=== PATIENT | female | born 1985 | race African-American/Black ===

== ENCOUNTER 2023-08-10 22:02 | Emergency (ER) | payer BC, SELFPAY ==
[2023-08-10 22:10] VITALS: BP 152/93; PULSE 83; RESP 20; TEMP 36.3; O2SAT 100
--- NOTE | 2023-08-11 00:49 | PC.NURSE ---
no answer at triage
== END 2023-08-11 00:49 | disposition left against medical advice (07) ==
LOC: ANHED 08-11 01:01
PROVIDERS: PCP Internal Medicine
DX: R55 Syncope and collapse (principal)
CPT/HCPCS: 99199

== ENCOUNTER 2023-10-08 20:44 | Emergency (ER) | payer BC, SELFPAY ==
[2023-10-08 20:44] VITALS: BP 139/108; PULSE 94; RESP 18; TEMP 36.3; O2SAT 100
[2023-10-08 21:01] LABS: Basophils Percent Auto 0.4 % (0.2-1.2); Eosinophils Absolute Auto 0.1 K/mm3 (0-0.3); Eosinophils Percent Auto 0.7 % (0-4.4); Hematocrit 41.8 % (37.0-47.0); Hemoglobin 13.7 g/dL (12.0-15.0); Immature Granulocyte Absolute 0.02 K/mm3 (0.00-0.031); Immature Granulocyte Percent A 0.3 % (0-0.5); Lymphocytes Absolute Auto 2.02 K/mm3 (0.9-3.2); Lymphocytes Percent Auto 29.7 % (18.3-44.2); Mean Corpuscular HGB Conc 32.8 g/dl (32-36); Mean Corpuscular Volume 85.5 fl (80-100); Mean Platelet Volume 10.3 fl (7.4-10.4); Monocytes Absolute Auto 0.4 K/mm3 (0.1-0.6); Monocytes Percent Auto 6.5 % (2.6-8.5); Neutrophils Absolute Auto 4.2 K/mm3 (1.3-6.7); Neutrophils Percent Auto 62.4 % (45.5-73.1); Platelet Count Result 291 k/mm3 (150-375); Red Blood Count 4.89 M/mm3 (4.2-5.4); Red Cell Distribution Width 15.1 % (11.5-14.5); White Blood Count 6.8 K/mm3 (4.5-10.0)
[2023-10-08 21:13] LABS: Alanine Aminotransferase 16 U/L (6-35); Albumin Level 4.5 g/dL (3.5-5.1); Alkaline Phosphatase 62 U/L (38-126); Anion Gap 6 mmol/L (4-12); Aspartate Amino Transferase 18 U/L (14-36); Bilirubin,Total 1.1 mg/dL (0.2-1.3); Blood Urea Nitrogen 8 mg/dL (7-17); Calcium 9.3 mg/dL (8.4-10.2); Carbon Dioxide 29 mmol/L (22-30); Chloride 103 mmol/L (98-107); Estimated CRCL calculation 91 ml/min; Estimated Glomerular Filt Rate > 60; Glucose 127 mg/dL (65-110); Potassium 3.5 mmol/L (3.4-5.0); Sodium 138 mmol/L (137-145)
[2023-10-08 21:14] LABS: Ethanol < 10 mg/dL (<10)
[2023-10-08 21:37] LABS: Influenza A QL RT-PCR Negative (Negative); Influenza B QL RT-PCR Negative (Negative); RSV RNA, RT-PCR Negative (Negative); SARS-CoV-2 RNA PCR Negative (Negative)
[2023-10-08 21:48] LABS: Thyroid Stimulating Hormone Reflex 0.716 uIU/mL (0.465-4.68)
--- NOTE | 2023-10-08 22:12 | ED_ITS ---
HPI - Psych General Chief Complaint: Psychiatric Symptoms Stated Complaint: non compliant with schizophrenia meds Time Seen by Provider: 10/08/23 21:06 History of Present Illness HPI Narrative: This is a 38-year-old female, with a reported history of schizophrenia, presents to the emergency department by EMS for hallucinations. The patient states she sometimes stops her medications due to ?denial. ? She states she has recently had hallucinations that there are cameras in her home watching her. She denies suicidal or homicidal ideations. EMS reports the patient's family contacted them for hallucinations and delusions. The patient had no reported SI or HI. Related Data Home Medications Medication Instructions Recorded Confirmed bupropion HCl 100 mg tablet,12 hr 100 mg PO BID 03/16/23 08/17/23 sustained-release (Wellbutrin SR) hydroxyzine HCl 50 mg tablet 50 mg PO DAILY PRN 03/16/23 08/17/23 lisinopril 20 mg tablet 20 mg PO DAILY 03/16/23 08/17/23 trazodone 50 mg tablet 50 mg PO QHS 03/16/23 08/17/23 Allergies Allergy/AdvReac Type Severity Reaction Status Date / Time No Known Allergies Allergy Verified 08/17/23 10:43 Review of Systems Review of Systems: CONSTITUTIONAL: Denies fever, chills, or sweats. ENT: Denies rhinorrhea, congestion, sore throat, or otalgia. CARDIOVASCULAR: Denies chest pain, palpitations, or edema. RESPIRATORY: Denies cough or dyspnea. GASTROINTESTINAL: Denies abdominal pain, nausea, vomiting, or diarrhea. GENITOURINARY: LMP 2 weeks ago. Denies dysuria or hematuria. SKIN: Denies rash or itching. MUSCULOSKELETAL: Denies back pain, joint pain, or myalgia. NEUROLOGIC: Denies headache, numbness, dizziness, or weakness. PSYCHIATRIC: Hallucinations, denies auditory hallucinations, denies SI or HI. Denies anxiety or depression. [facility] Past Medical History Medical History Essential hypertension Schizophrenia Surgical History Surgical History No significant past surgical history Family History Family History Mother Alcoholism Asthma Diabetes mellitus Social History Social History Smoking status: Former smoker Tobacco type: cigarettes Smoking end date: 02/28/23 Alcohol intake: current Substance use type: marijuana Exam Narrative: GENERAL: Well-developed, well-nourished, and in no acute distress. HEAD: Normocephalic, atraumatic. EYES: PERRLA and EOMI. CHEST: Clear to auscultation. No respiratory distress. No wheezes rales or rhonchi HEART: Regular rate and rhythm. No murmur heard. Normal peripheral pulses. ABDOMEN: Soft, nontender, nondistended, normal active bowel sounds. EXTREMITIES: Normal range of motion. No edema. SKIN: Warm, dry, no rash. NEURO: Alert and oriented x3. No focal deficit. Moving all 4 limbs spontaneously PSYCH: Normal mood and affect. Course Course Emergency Course: 22:12 - I spoke with the patient's sister (Cleo Vasquez), who notes the patient has had hallucinations over the past 2-3 years, primarily when not taking medications. Today the patient's sister noted the patient's child called stating the patient had recurrent hallucinations and delusions that there are cameras in the home. Patient's sister states the patient attempted suicide in July. The patient's family is concerned for her safety. They are unsure of the name of the patient's psychiatrist. 00:20 - CBC unremarkable. Chemistries unremarkable. test negative. UA demonstrates leukocyte esterase with white blood cells, though does have squamous cells may reflect a UTI. Urine drug screen negative. Alcohol level negative. The patient was negative for influenza, RSV and COVID. The patient was evaluated by crisis Care, who recommends a safety plan. I agree with her assessment, I do not suspect patient poses a danger to herself or others. The patient demonstrates good insight to her symptoms and the need for medications. Will discharge. I discussed the findings and recommendations with the patient. Discussed return and emergency precautions including signs/symptoms of suicidal ideations or homicidal ideations. The patient voiced understanding and agreement with the plan. All questions answered to her satisfaction. Vital Signs Vital signs: Vital Signs Temperature 97.4 F L 10/08/23 20:44 Pulse Rate 94 10/08/23 20:44 Respiratory Rate 18 10/08/23 20:44 Blood Pressure 139/108 H 10/08/23 20:44 Pulse Oximetry 100 10/08/23 20:44 Oxygen Delivery Room Air 10/08/23 20:44 Temperature 97.4 F L 10/08/23 20:44 Pulse Rate 94 10/08/23 20:44 Respiratory Rate 18 10/08/23 20:44 Blood Pressure 139/108 H 10/08/23 20:44 Pulse Oximetry 100 10/08/23 20:44 Oxygen Delivery Room Air 10/08/23 20:44 MDM - Psych MDM Narrative Medical decision making narrative: Plan: Labs, psychiatric consultation, reassess Differential Diagnosis Differential diagnosis: Likely acute psychosis, chronic schizophrenia, depression, drug-induced psychotic disorder and other (Alcohol intoxication, , hyperthyroidism, medication noncompliance, UTI, other) Lab Data 10/08/23 20:54 10/08/23 20:54 Labs: Lab Results 10/08/23 10/08/23 10/08/23 Range/Units 20:53 20:54 22:31 WBC 6.8 (4.5-10.0) K/mm3 RBC 4.89 (4.2-5.4) M/mm3 Hgb 13.7 (12.0-15.0) g/dL Hct 41.8 (37.0-47.0) % MCV 85.5 (80-100) fl MCH 28.0 (26-34) pg MCHC 32.8 (32-36) g/dl RDW 15.1 H (11.5-14.5) % Plt Count 291 (150-375) k/mm3 MPV 10.3 (7.4-10.4) fl Immature Gran % (Auto) 0.3 (0-0.5) % Neut % (Auto) 62.4 (45.5-73.1) % Lymph % (Auto) 29.7 (18.3-44.2) % [place] % (Auto) 6.5 (2.6-8.5) % Eos % (Auto) 0.7 (0-4.4) % Baso % (Auto) 0.4 (0.2-1.2) % Lymph # (Auto) 2.02 (0.9-3.2) K/mm3 [place] # (Auto) 0.4 (0.1-0.6) K/mm3 Eos # (Auto) 0.1 (0-0.3) K/mm3 Baso # (Auto) 0.0 (0.0-0.1) K/mm3 Abs Immat Gran (auto) 0.02 (0.00-0.031) K/mm3 Absolute Neuts (auto) 4.2 (1.3-6.7) K/mm3 Absolute Nucleated RBC 0.000 (0.0-0.012) K/mm3 Nucleated RBC % 0.0 (0.0-0.2) % Sodium 138 (137-145) mmol/L Potassium 3.5 (3.4-5.0) mmol/L Chloride 103 (98-107) mmol/L Carbon Dioxide 29 (22-30) mmol/L Anion Gap 6 (4-12) mmol/L BUN 8 (7-17) mg/dL Creatinine 0.80 (0.7-1.0) mg/dL Estim Creat Clear Calc 91 ml/min Estimated GFR > 60 (59 - ) Glucose 127 H (65-110) mg/dL Calcium 9.3 (8.4-10.2) mg/dL Total Bilirubin 1.1 (0.2-1.3) mg/dL AST 18 (14-36) U/L ALT 16 (6-35) U/L Alkaline Phosphatase 62 (38-126) U/L Total Protein 8.0 (6.3-8.2) g/dL Albumin 4.5 (3.5-5.1) g/dL TSH (Reflex) 0.716 (0.465-4.68) uIU/mL Urine Color Yellow (Yellow) Urine Appearance Cloudy H (Clear) Urine pH 6.0 (5.0-9.0) Ur Specific [place] 1.018 (1.001-1.035) Urine Protein Negative (Negative) mg/dL Urine Glucose (UA) Negative (Negative) mg/dL Urine Ketones 2+ H (Negative) mg/dL Ur Blood (Man) Negative (Negative) Urine Nitrate Negative (Negative) Urine Bilirubin Negative (Negative) Urine Urobilinogen 1.0 (<2.0) mg/dL Add Ur Microanalysis Reviewed Leukocyte Esterase Rfl Trace H (Negative) MELISSA/UL Urine RBC 6-10 H (0-2) /hpf Urine WBC 11-20 H (0-3) /hpf Ur Squamous Epith Cells Moderate (Few) /hpf Urine Bacteria 4+ H /hpf Urine Casts 0-2 Urine Opiates Screen Negative (Negative) Urine Methadone Screen Negative (Negative) Ur Barbiturates Screen Negative (Negative) Ur Phencyclidine Scrn Negative (Negative) Ur Amphetamine Screen Negative (Negative) U Benzodiazepines Scrn Negative (Negative) Urine Cocaine Screen Negative (Negative) U Cannabinoids Screen Negative (Negative) Ethyl Alcohol < 10 (<10) mg/dL Influenza A (RT-PCR) Negative (Negative) Influenza B (RT-PCR) Negative (Negative) RSV (RT-PCR) Negative (Negative) SARS-CoV-2 RNA (RT-PCR) Negative (Negative) UCG Bedside Result Negative Reference Range: Negative Discharge Plan Discharge Clinical Impression: Schizophrenia Qualifiers: Schizophrenia type: other Qualified Code(s): F20.89 - Other schizophrenia UTI (urinary tract infection) Qualifiers: Urinary tract infection type: acute cystitis Hematuria presence: with hematuria Qualified Code(s): N30.01 - Acute cystitis with hematuria Patient Disposition: Home, Self-Care Condition: Stable Instructions: Antibiotic Form, Urinary Tract Infection in Women (ED), Schizophrenia (ED) Additional Instructions: You were seen in the emergency department. Your evaluated by a crisis counselor is with recommendation for restarting her medications and following up with a psychiatrist. Your labs appear consistent with urinary tract infection. I also recommend following up with your primary care doctor. If you develop fevers with severe abdominal pain, thoughts of hurting yourself or killing yourself, or if you have other emergent concerns for life, limb, or eyesight, return to the emergency department. Patient Language: Uzbek Prescriptions: New cephalexin 500 mg tablet 500 mg PO Q12H Qty: 14 0RF No Action bupropion HCl [Wellbutrin SR] 100 mg tablet sustained-release 12 hr 100 mg PO BID Hold Instructions: See office note hydroxyzine HCl 50 mg tablet 50 mg PO DAILY PRN lisinopril 20 mg tablet 20 mg PO DAILY trazodone 50 mg tablet 50 mg PO QHS risperidone [Risperdal] 2 mg tablet 2 mg PO QHS Qty: 90 0RF Hold Instructions: See office note nicotine 21-14-7 mg/24 hr patch, TD daily, sequential See Rx Instructions transdermal .COMPLEX Qty: 56 0RF Rx Instructions: apply 1-21 mg NICOTINE PATCH daily for 28 days; follow with 1-14 mg PATCH daily for 14 days, then 1-7mg PATCH daily for 14 days transdermal Follow-up/Referrals: Bismark Elizalde, [Primary Care Provider] - 1 Week Time of Disposition: 00:20
[2023-10-08 23:11] LABS: Appearance Urine Cloudy (Clear); Bacteria Urine 4+ /hpf; Bilirubin Urine Negative (Negative); Blood Urine Negative (Negative); Color Urine Yellow (Yellow); Glucose Urine UA Negative (Negative); Ketones Urine 2+ mg/dL (Negative); Leukocyte Esterase Ur Trace LEU/UL (Negative); Need Manual Microscopic Reviewed; Nitrate Urine Negative (Negative); Non Pathogenic Casts 0-2; Protein Urine Negative (Negative); Specific Grav Ur 1.018 (1.001-1.035); Squamous Epithelial Cell Urine Moderate /hpf (Few)
[2023-10-08 23:19] LABS: Add Urine Microscopic? YES
[2023-10-08 23:21] LABS: Amphetamine Screen Urine Negative (Negative); Barbiturate Screen Urine Negative (Negative); Benzodiazepines Screen Urine Negative (Negative); Cannabinoid Screen Urine Negative (Negative); Cocaine Screen Urine Negative (Negative); Methadone Screen Urine Negative (Negative); Opiate Screen Urine Negative (Negative); Phencyclidine Screen Urine Negative (Negative)
--- NOTE | 2023-10-09 01:06 | PC.NURSE ---
this rn called Cleo at patient request to pick patient up and transport her home. Cleo stated she would come and transport patient and to have patient ready for when she arrived. this rn discharged patient and had patient wait for Cleo in waiting room.
[2023-10-09 01:07] VITALS: BP 117/81; PULSE 87; RESP 16; O2SAT 99
== END 2023-10-09 01:07 | disposition home or self-care (01) ==
PROVIDERS: Emergency Provider Preventive Medicine Aerospace Medicine; PCP Internal Medicine
DX: F20.89 Other schizophrenia (principal); N30.01 Acute cystitis with hematuria; Z11.52 Encounter for screening for COVID-19; I10 Essential (primary) hypertension; Z87.891 Personal history of nicotine dependence
CPT/HCPCS: 36415; 80053; 80307; 81001; 81025; 84443; 85025; 87077; 87086; 87088; 87637; 99284